=== PATIENT | female | born 1975 | race Caucasian/White ===

== ENCOUNTER 2024-07-11 14:36 | Emergency (ER) | payer OTHER, SELFPAY ==
[2024-07-11] MEDS ORDERED: traMADol HCl 50 MG TAB ONE (17:20)
[2024-07-11] MEDS ORDERED: Doxycycline 100 MG CAP ONE (17:21)
== END 2024-07-11 17:40 | disposition home or self-care (01) ==
LOC: MADERS 14:36
DX: R21 Rash and other nonspecific skin eruption (principal); L08.9 Local infection of the skin and subcutaneous tissue, unspecified; F32.A Depression, unspecified; F17.210 Nicotine dependence, cigarettes, uncomplicated
CPT/HCPCS: 99282